=== PATIENT | female | born 1970 | race Caucasian/White ===

== ENCOUNTER 2021-06-14 17:16 | Emergency (ER) | payer SELFPAY ==
[2021-06-14 17:32] VITALS: BP 151/78; PULSE 106; RESP 18; TEMP 37.1; O2SAT 96
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
--- NOTE | 2021-06-14 18:26 | XRR_ITS ---
PROCEDURE INFORMATION: Exam: XR Left Hip Exam date and time: 06/14/2021 6:26 PM Age: 51 years old Clinical indication: Pelvic pain; Additional info: Injury TECHNIQUE: Imaging protocol: XR Left hip. Views: 2 or 3 views hip with pelvis when performed. Total images: 3 COMPARISON: No relevant prior studies available. FINDINGS: Bones/joints: Unremarkable. No acute fracture. Soft tissues: Unremarkable. XR/XR hip LT 2-3V wo/w pel* [id number] IMPRESSION: No acute findings.
--- NOTE | 2021-06-14 18:26 | XRR_ITS ---
PROCEDURE INFORMATION: Exam: XR Left Knee Exam date and time: 06/14/2021 6:26 PM Age: 51 years old Clinical indication: Pain; Knee; Left; Additional info: Injury TECHNIQUE: Imaging protocol: XR Left knee. Views: 3 views. Total images: 3 COMPARISON: No relevant prior studies available. FINDINGS: Bones/joints: No visible acute osseous abnormality, fracture, subluxation, or dislocation. No radiographically visible joint effusion. Soft tissues: Soft tissues without evidence of edema, swelling, contusion, emphysema, or radiopaque foreign body. XR/XR knee LT 3V* [id number] IMPRESSION: Nonacute.
[2021-06-14] MEDS: acetaminophen 500 mg Tablet 650 MG PO (19:31)
[2021-06-14] MEDS: ibuprofen 200 mg Tablet 400 MG PO (19:32)
[2021-06-14 19:40] VITALS: PULSE 94; RESP 18; O2SAT 96
== END 2021-06-14 19:36 | disposition home or self-care (01) ==
PROVIDERS: Emergency Provider Nurse Practitioner Family
DX: S80.12XA Contusion of left lower leg, initial encounter (principal); S76.012A Strain of muscle, fascia and tendon of left hip, initial encounter; V03.90XA Pedestrian on foot injured in collision with car, pick-up truck or van, unspecified whether traffic or nontraffic accident, initial encounter; Y92.481 Parking lot as the place of occurrence of the external cause
CPT/HCPCS: 73502; 73562; 99283